=== PATIENT | male | born 1955 | race Caucasian/White ===

== ENCOUNTER → 2020-06-17 01:11 | Outpatient (CLI) | payer BC, SELFPAY ==
[2020-06-17 20:38] LABS: SARS-CoV-2 RNA PCR Negative
== END ==
PROVIDERS: Visit Provider Internal Medicine Gastroenterology
DX: Z01.812 Encounter for preprocedural laboratory examination (principal); Z20.822 Contact with and (suspected) exposure to COVID-19
CPT/HCPCS: C9803; U0003; U0005

== ENCOUNTER 2020-06-21 00:43 | Day surgery (SDC) | payer BC, SELFPAY ==
[2020-06-07 11:17] VITALS: BMI 32.0
[2020-06-21 09:52] VITALS: BP 139/91; PULSE 76; RESP 18; TEMP 36.1; O2SAT 97; BMI 32.1
[2020-06-21] MEDS: LACTATED RINGERS 1,000 ML 150 ML IV CONT (10:03)
--- NOTE | 2020-06-21 10:45 | P.PNAN_ITS ---
Anes - Initial Pre Proc Eval Procedure: Operation Date: 06/21/20 10:30 Proposed Procedures p Screening Colonoscopy - Bernardo Nava MD Date/Time: 06/21/20 10:45 Surgeon: Bernardo Nava MD Pre Op Diagnosis: Neoplasm Screening Patient Data Age: 65 Gender: M Height: 6 ft 1 in Weight: 110.6 kg Last Vital Signs Temp 36.1 C L 06/21/20 09:52 Pulse 76 06/21/20 09:52 Resp 18 06/21/20 09:52 BP 139/91 H 06/21/20 09:52 Pulse Ox 97 06/21/20 09:52 Allergies Allergy/AdvReac Type Severity Reaction Status Date / Time No Known Allergies Allergy Verified 06/21/20 09:50 Home Medications Medication Instructions Recorded Confirmed Type sodium,potassium,mag sulfates See Rx Instructions .ROUTE 06/05/20 Rx [Suprep Bowel Prep Kit] .COMPLEX #1 ml amlodipine 10 mg PO DAILY 06/07/20 06/07/20 History losartan 100 mg PO DAILY 06/07/20 06/21/20 History simvastatin 20 mg PO DAILY 06/07/20 06/07/20 History Patient hx anesthesia problems: none Family hx anesthesia problems: none [facility] Past Medical History Medical History (Updated 06/21/20 @ 10:48 by Raj Bhardwaj MD) HTN (hypertension) Hyperlipidemia Obesity Surgical History Surgical History (Updated 06/21/20 @ 10:48 by Raj Bhardwaj MD) H/O colonoscopy Social History Social History Smoking status: Never smoker Alcohol intake: never Substance use type: does not use Living arrangements: with family Spiritual care concerns: No Anes - Eval Final PreProcedure Day of Procedure 06/21/20 10:45 Patient weight: obese Heart: regular rate and rhythm Lungs: clear to auscultation Airway: Mallampati scale class II Neurological: alert and oriented Last oral intake: >/= 8 hours ASA classification: II Emergent: no Anesthetic plan: proceed Anesthesia type and monitoring: general GIVS and standard monitoring Informed Consent: The patient's anesthetic plan and its attendant risks and benefits were discussed with the patient/family/POA. Questions were solicited and answers provided to the satisfaction of the patient/family/POA.
--- NOTE | 2020-06-21 11:06 | PM.HPGS ---
History of Present Illness History of Present Illness Consent: Risks, benefits, and alternatives have been discussed and questions answered. Patient agrees to proceed with procedure. Chief complaint: Neoplasm Screening Narrative: Hima Bolden is a 65 year old male here for colon screening, last one 8 years ago. Review of Systems Constitutional: Constitutional: Denies headache(s) and Denies weakness Eyes: Eyes: Denies blurry vision ENT: Reports Normal hearing present, Denies headache(s) and Denies neck pain Cardiovascular: Cardiovascular: Denies chest pain and Denies dyspnea Respiratory: Respiratory: Denies dyspnea Gastrointestinal: Gastrointestinal: Reports no additional gastrointestinal complaints Genitourinary: Genitourinary: Denies dysuria Musculoskeletal: Musculoskeletal: Denies neck pain Integumentary/Breasts: Skin/Breast: Denies dry skin Neurologic: Reports Normal hearing present, Denies headache(s) and Denies weakness Psychiatric: Psychiatric: Denies anxiety Endocrine: Endocrine: Denies change in body appearance Hematologic/Lymphatic: Hematologic/Lymphatic: Denies easy bleeding Allergic/Immunologic: Allergic/Immunologic: Denies urticaria PMFSH Past Medical History Medical History (Updated 06/21/20 @ 11:06 by Bernardo Nava MD) Colon cancer screening HTN (hypertension) Hyperlipidemia Obesity Surgical History Surgical History (Updated 06/21/20 @ 10:48 by Raj Bhardwaj MD) H/O colonoscopy Social History Social History Smoking status: Never smoker Alcohol intake: never Substance use type: does not use Living arrangements: with family Spiritual care concerns: No Meds Home Medications and Allergies Home Medications Medication Instructions Recorded Confirmed Type sodium,potassium,mag sulfates See Rx Instructions .ROUTE 06/05/20 Rx [Suprep Bowel Prep Kit] .COMPLEX #1 ml amlodipine 10 mg PO DAILY 06/07/20 06/07/20 History losartan 100 mg PO DAILY 06/07/20 06/21/20 History simvastatin 20 mg PO DAILY 06/07/20 06/07/20 History Allergies Allergy/AdvReac Type Severity Reaction Status Date / Time No Known Allergies Allergy Verified 06/21/20 09:50 Vital Signs Vital Signs - 24 hr 06/21/20 09:52 Temperature 97 F L Pulse Rate 76 Respiratory Rate 18 Blood Pressure 139/91 H Pulse Oximetry 97 Exam Const: General: comfortable and no acute distress HENMT: General nose exam: Normal nares present Eyes: General: appearance normal, both eyes and all related structures Neck: Neck: no JVD Resp: Auscultation: clear to auscultation bilaterally Cardio: Rate: regular rate Rhythm: regular rhythm GI: Inspection: non-distended GI Palp: Yes Soft to palpation Skin: General skin exam: normal color Neuro: General: gait normal Speech: normal speech Extrem: General: normal to inspection Psych: Mental Status: mental status grossly normal Assessment and Plan Assessment and plan (1) Colon cancer screening: Code(s): Z12.11 - Encounter for screening for malignant neoplasm of colon Status: Acute Assessment and Plan: will proceed with colonoscopy
[2020-06-21 11:34] VITALS: BP 105/62; PULSE 83; RESP 20; O2SAT 97
[2020-06-21 11:44] VITALS: BP 108/71; PULSE 83; RESP 17; O2SAT 98
[2020-06-21 11:54] VITALS: BP 127/83; PULSE 75; RESP 18; O2SAT 97
== END 2020-06-21 12:07 | disposition home or self-care (01) ==
PROVIDERS: Visit Provider Internal Medicine Gastroenterology
PROC: 0DJD8ZZ Inspection of Lower Intestinal Tract, Via Natural or Artificial Opening Endoscopic (ICD-10-PCS; CPT 45378; principal; 2020-06-21 10:30)
DX: Z12.11 Encounter for screening for malignant neoplasm of colon (principal); K57.30 Diverticulosis of large intestine without perforation or abscess without bleeding; K63.5 Polyp of colon; K64.8 Other hemorrhoids; I10 Essential (primary) hypertension; E78.5 Hyperlipidemia, unspecified; E66.9 Obesity, unspecified; Z68.32 Body mass index [BMI] 32.0-32.9, adult
CPT/HCPCS: 45385; 88305; J2704; J7120

== ENCOUNTER 2020-09-01 18:36 | Emergency (ER) | payer BC, SELFPAY ==
[2020-09-01 19:50] VITALS: BP 149/87; PULSE 77; RESP 18; TEMP 36.2; O2SAT 97
--- NOTE | 2020-09-01 21:25 | ED.EXTPRO ---
HPI - Extremity Problem General Chief complaint: Extremity Problem,Nontraumatic Stated complaint: ingrown fingernail Time Seen by Provider: 09/01/20 21:16 Source: patient Mode of arrival: ambulatory Limitations: no limitations History of Present Illness HPI Narrative: This is a 65-year-old male that presents the emergency department for left third finger swelling and redness. Also reports pain to the area. No injuries or trauma. Denies fever or drainage. Related Data Home Medications Medication Instructions Recorded Confirmed amlodipine 10 mg PO DAILY 06/07/20 06/07/20 losartan 100 mg PO DAILY 06/07/20 06/21/20 simvastatin 20 mg PO DAILY 06/07/20 06/07/20 Allergies Allergy/AdvReac Type Severity Reaction Status Date / Time No Known Allergies Allergy Verified 09/01/20 21:33 Review of Systems Review of Systems: Narrative: CONSTITUTIONAL: Denies fever SKIN: Reports erythema and edema All systems reviewed & are unremarkable except as noted in HPI and below PMFSH Past Medical History Medical History (Updated 09/01/20 @ 22:31 by Minnie De La Paz PA-C) Colon cancer screening HTN (hypertension) Hyperlipidemia Obesity Surgical History Surgical History (Updated 06/21/20 @ 10:48 by Raj Bhardwaj MD) H/O colonoscopy Social History Social History Smoking status: Never smoker Alcohol intake: never Substance use type: does not use Spiritual care concerns: No Exam Narrative: Exam Narrative: GENERAL: Well-appearing, well-nourished, and in no acute distress. HEAD: Normocephalic, atraumatic. EYES: EOMI. EXTREMITIES: Normal range of motion. Moderate edema and erythema of the left third finger distal phalanx at the proximal nailfold consistent with paronychia SKIN: Warm, dry, no rash. NEURO: No focal deficits. Alert and oriented x3. PSYCH: Normal mood and affect Course Vital Signs Vital signs: Vital Signs Temperature 97.1 F L 09/01/20 19:50 Pulse Rate 77 09/01/20 19:50 Respiratory Rate 18 09/01/20 19:50 Blood Pressure 149/87 H 09/01/20 19:50 Pulse Oximetry 97 09/01/20 19:50 Temperature 97.1 F L 09/01/20 19:50 Pulse Rate 77 04/23/21 19:50 Respiratory Rate 18 09/01/20 19:50 Blood Pressure 149/87 H 09/01/20 19:50 Pulse Oximetry 97 09/01/20 19:50 Procedures Abscess I/D hand: Date of Incision: 09/01/20 Time of Incision: 22:26 Side (if applicable): left Local Anesthetic: lidocaine 1% Amount of anesthesia used (mL): 4 Technique: incised with #11 blade Packing used?: none I&D Results: Pus and Blood MDM - Extremity (Nontraumatic) MDM Narrative Medical decision making narrative: Patient presents to the emergency department for paronychia. This was drained. Patient will be started on oral antibiotics and was instructed on warm soapy soaks. He is to follow-up with his primary care doctor. Will be given hand surgeon for any worsening symptoms. Critical Care Time Critical Care Time Critical Care Time: No Discharge Plan Discharge Clinical Impression: Paronychia Patient Disposition: Home, Self-Care Condition: Stable Instructions: Antibiotic Form, Paronychia (ED) Additional Instructions: Return if symptoms worsen or concerns: any increase in redness, swelling, pain, or fever over 101 Take antibiotics as directed. Soak wound in warm soapy water for 15 minutes 3 times daily. Apply antibiotic ointment. Follow up with primary care in the next 2-3 days for re-evaluation Dr. Joseph is hand surgery if needed for any worsening symptoms Prescriptions: New sulfamethoxazole-trimethoprim [Bactrim DS] 800-160 mg tablet 1 tablet PO Q12H 7 Days Qty: 14 RF: 0 No Action Suprep Bowel Prep Kit 17.5-3.13-1.6 gram Recon Soln See Rx Instructions .ROUTE .COMPLEX Qty: 1 RF: 0 amlodipine 10 mg tablet 10 mg PO DAILY RF: 0 simvastatin 20 m
[2020-09-01 22:48] VITALS: BP 147/83; PULSE 78; RESP 18; O2SAT 98
== END 2020-09-01 22:49 | disposition home or self-care (01) ==
PROVIDERS: Emergency Provider Emergency Medicine; PCP Family Medicine
DX: L03.012 Cellulitis of left finger (principal); I10 Essential (primary) hypertension; E78.5 Hyperlipidemia, unspecified; E66.9 Obesity, unspecified; Z68.30 Body mass index [BMI] 30.0-30.9, adult
CPT/HCPCS: 26010; 99283; A9270

== ENCOUNTER 2020-11-01 15:04 | Outpatient (CLI) | payer BC, SELFPAY ==
--- NOTE | ~2020-11-01 | XR_ITS ---
EXAMINATION: XR abdomen/kub 1V DATE: 11/01/2020 15:21 INDICATION: Left pelvic pain. TECHNIQUE: A supine view of the abdomen on 2 radiographs was obtained. COMPARISON: None. FINDINGS: There are no dilated loops of bowel. A 3 mm calcification overlies right kidney. A 4 mm reji cification overlies left pelvis. IMPRESSION: 1. 4 mm calcification in left pelvis, which may be a phlebolith or distal ureteral stone. 2. 3 mm right kidney stone. Reviewed, dictated and finalized at location A. IMPRESSION: 1. 4 mm calcification in left pelvis, which may be a phlebolith or distal urete ral stone. 2. 3 mm right kidney stone.
== END 2020-11-01 15:05 | disposition home or self-care (01) ==
LOC: ANHIMG 15:09
PROVIDERS: PCP Family Medicine
DX: R10.2 Pelvic and perineal pain (principal); N20.0 Calculus of kidney
CPT/HCPCS: 74018

== ENCOUNTER → 2021-02-13 10:57 | Outpatient (CLI) | payer BC, SELFPAY ==
--- NOTE | ~2021-02-13 | US_ITS ---
EXAMINATION: US carotid duplex BI DATE: 02/13/2021 11:43 INDICATION: Familial history of strokes. TECHNIQUE: Grayscale, color Doppler, and pulsed Doppler images of the cervical carotid arteries were obtained. The degree of vessel stenosis is placed in one of the following categories: normal, <50%, 5 0-69%, >=70% but less than near-occlusion, near-occlusion, or total occlusion. Note that percent sten osis relative to normal distal artery lumen diameter is indirectly measured from velocity measurement s as described by Omari, et al. Radiology 2003; 229:340-346. COMPARISON: None. FINDINGS: RIGHT: The right common carotid artery (CCA) peak systolic velocity (PSV) is 82 cm/s. The right internal car otid artery (ICA) PSV is 54 cm/s. The right ICA end-diastolic velocity (EDV) is 16 cm/s. The right IC A/CCA PSV ratio is 0.7. Grayscale and color Doppler images yield an estimate of <50% diameter reducti on from small amount of plaque in the ICA. The external carotid artery (ECA) PSV is 81 cm/s. There is antegrade flow in the right vertebral artery. LEFT: The left CCA PSV is 83 cm/s. The left ICA PSV is 63 cm/s. The left ICA EDV is 22 cm/s. The left ICA/C CA PSV ratio is 0.8. Grayscale and color Doppler images yield an estimate of <50% diameter reduction from minimal plaque in the ICA. The ECA PSV is 96 cm/s. There is antegrade flow in the left vertebral artery. IMPRESSION: 1. <50% stenosis in the right internal carotid artery. 2. <50% stenosis in the left internal carotid artery. Reviewed, dictated and finalized at location B.
== END ==
DX: I65.23 Occlusion and stenosis of bilateral carotid arteries (principal); Z82.3 Family history of stroke
CPT/HCPCS: 93880

== ENCOUNTER 2021-07-25 16:51 | Emergency (ER) | payer BC, SELFPAY ==
[2021-07-25] VITALS (13 sets, daily range): BP systolic 139–161; BP diastolic 86–102; PULSE 66–96; RESP 15–19; TEMP 36.9; O2SAT 92–95
--- NOTE | ~2021-07-25 | CT_ITS ---
EXAMINATION: CT brain wo con DATE: 07/25/2021 18:29 INDICATION: Speech difficulty, unsteady gait, drooling TECHNIQUE: Computed tomography (CT) of the head was performed without intravenous contrast. The mA wa s adjusted according to patient size. Iterative reconstruction technique was employed. Exam dose: 68 1.00 mGy-cm total exam DLP. COMPARISON: None FINDINGS: There is a 4.3 cm wide, 4.9 cm anteroposterior and approximately 4.6 cm vertical dimension left temporoparietal irregular mass lesion with peripheral edema. There is central hypoattenuation of the mass suggesting central necrosis. There is mass effect/effacement of the body and frontal horn o f the left lateral ventricle and approximately 5 mm rightward midline shift. The findings are consist ent with malignant lesion, most likely related primary brain malignancy. Differential diagnosis inclu juventino less likely metastasis. No intracranial hemorrhage or cerebrovascular accident is evident. No subdural or epidural hematoma. No other intracranial mass lesion is evident. Mastoid air cells and included paranasal sinuses are normally developed and aerated. No fracture or bone destruction of the cranial vault. 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 Metastasis is less li efrain. Reviewed, dictated and finalized at Location [facility]. Reviewed, dictated and finalized at location A. 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 Primary brain case gnancy is most likely. Metastasis is less likely.
--- NOTE | ~2021-07-25 | XR_ITS ---
XR chest 1V DATE: 07/25/2021 18:31 INDICATION: Stroke symptoms TECHNIQUE: PA chest COMPARISON: None FINDINGS: Normal heart size. There is mild aortic unfolding. No hilar or mediastinal enlargement is n oted. There is a large hiatal hernia. Mild atelectasis is suggested at the lung bases. The lungs otherwise appear clear. No pleural effusio n or pulmonary vascular congestion or pneumothorax. IMPRESSION: Large hiatal hernia Mild basilar atelectasis is suggested bilaterally Reviewed, dictated and finalized at location A.
--- NOTE | 2021-07-25 18:16 | ECG_ITS ---
Measurements Intervals [place] Rate: 78 P: 14 NC: 136 QRS: 13 QRSD: 92 T: 50 QT: 359 QTc: 410 Interpretive Statements SINUS RHYTHM NONSPECIFIC T-WAVE ABNORMALITY NO PREVIOUS ECG AVAILABLE FOR COMPARISON Electronically Signed On 07-25-2021 20:30:39 CDT by Camila Krishnan M.D.
[2021-07-25 19:15] LABS: Basophils Absolute Auto 0.1 K/mm3 (0.0-0.1); Eosinophils Absolute Auto 0.1 K/mm3 (0-0.3); Eosinophils Percent Auto 1.2 % (0-4.4); Hematocrit 47.9 % (42.0-52.0); Hemoglobin 15.9 g/dL (14.0-18.0); Immature Granulocyte Absolute 0.03 K/mm3 (0.00-0.031); Immature Granulocyte Percent A 0.3 % (0-0.5); Lymphocytes Absolute Auto 3.12 K/mm3 (0.9-3.2); Lymphocytes Percent Auto 29.6 % (18.3-44.2); Mean Corpuscular HGB Conc 33.2 g/dl (32-36); Mean Corpuscular Hemoglobin 31.3 pg (26-34); Mean Corpuscular Volume 94.3 fl (80-100); Mean Platelet Volume 8.8 fl (7.4-10.4); Monocytes Absolute Auto 1.1 K/mm3 (0.1-0.6); Monocytes Percent Auto 10.7 % (2.6-8.5); Neutrophils Percent Auto 57.2 % (45.5-73.1); Platelet Count Result 372 k/mm3 (150-375); Red Blood Count 5.08 M/mm3 (4.6-6.20); Red Cell Distribution Width 13.6 % (11.5-14.5); White Blood Count 10.6 K/mm3 (4.5-10.0)
[2021-07-25 19:26] LABS: INR 1.1; Partial Thromboplastin Time 28.1 SECONDS (22.3-36.8); Prothrombin Time 13.3 Seconds (11.1-14.7)
[2021-07-25 19:28] LABS: Alanine Aminotransferase 27 U/L (4-50); Albumin Level 4.7 g/dL (3.5-5.1); Alkaline Phosphatase 97 U/L (38-126); Anion Gap 11 mmol/L (8-16); Aspartate Amino Transferase 29 U/L (17-59); Bilirubin,Total 0.9 mg/dL (0.2-1.3); Blood Urea Nitrogen 14 mg/dL (9-20); Carbon Dioxide 25 mmol/L (22-30); Chloride 102 mmol/L (98-107); Estimated CRCL calculation 92 ml/min; Estimated Glomerular Filt Rate > 60; Glucose 114 mg/dL (65-110); Potassium 3.9 mmol/L (3.4-5.0); Sodium 138 mmol/L (137-145)
--- NOTE | 2021-07-25 19:34 | ED.NEUROSD ---
HPI - Neuro Symptoms/Deficit General Chief Complaint: Neuro Symptoms/Deficit Stated Complaint: problem speaking x2 wks, unsteady gait Time Seen by Provider: 07/25/21 19:18 Source: patient History of Present Illness HPI Narrative: Patient brought in by family concern for difficulty speaking. In approximately 2 weeks ago he is having a hard time finding the words the past few days his gait has seemed unsteady and he seems to have a shuffling walk there was concerned so he came to the ER for evaluation. Patient reports he feels fine and has no complaints he is unsure as to why he is here. Denies any headache, nausea, vomiting denies any focal numbness or weakness denies any changes in vision. He also reports he appears more confused Related Data Home Medications Medication Instructions Recorded Confirmed amlodipine 10 mg PO DAILY 06/07/20 06/07/20 losartan 100 mg PO DAILY 06/07/20 06/21/20 sildenafil (pulm.hypertension) 07/25/21 Allergies Allergy/AdvReac Type Severity Reaction Status Date / Time No Known Allergies Allergy Verified 09/01/20 21:33 Review of Systems Review of Systems: CONSTITUTIONAL: Denies fever, chills, or sweats. EYES: Denies visual changes, redness, or discharge. ENT: Denies rhinorrhea, congestion, sore throat, or otalgia. CARDIOVASCULAR: Denies chest pain, palpitations, or edema. RESPIRATORY: Denies cough or dyspnea. GASTROINTESTINAL: Denies abdominal pain, nausea, vomiting, or diarrhea. GENITOURINARY: Denies dysuria or hematuria. SKIN: Denies rash or itching. MUSCULOSKELETAL: Denies back pain, joint pain, or myalgia. NEUROLOGIC: Denies headache, numbness, dizziness, or weakness. PSYCHIATRIC: Denies anxiety or depression. All systems reviewed & are unremarkable except as noted in HPI and below PMFSH Past Medical History Medical History Colon cancer screening HTN (hypertension) Hyperlipidemia Obesity Surgical History Surgical History H/O colonoscopy Social History Social History Smoking status: Never smoker Alcohol intake: never Substance use type: does not use Spiritual care concerns: No Exam Narrative: GENERAL: Well-appearing, well-nourished, and in no acute distress. HEAD: Normocephalic, atraumatic. EYES: PERRLA and EOMI. ENT: Nares clear, no rhinorrhea or epistaxis. Mucous membranes moist. NECK: Supple. No masses. No JVD CHEST: Clear to auscultation. No respiratory distress. No wheezes rales or rhonchi HEART: Regular rate and rhythm. No murmur heard. Normal peripheral pulses. ABDOMEN: Soft, nontender, nondistended, normal active bowel sounds. EXTREMITIES: Normal range of motion. No edema. SKIN: Warm, dry, no rash. NEURO: Cranial nerves II through XII are intact patient has 5 out of 5 strength in all extremities sensation intact to light touch in all extremities alert and oriented to self time and location but not situation. PSYCH: Normal mood and affect. Course Reevaluation(s) Reevaluation #1: Patient signed out to Dr. Ghosh pending bed assignment Date: 07/26/21 Time: 07:22 Consultations Consultation #1: Call placed to [facility] transfer center requesting transfer for neurosurgical evaluation Date: 07/25/21 Time: 19:36 Consultation #2: Patient was accepted by Dr. Kyle at [place] Date: 07/25/21 Time: 20:24 Vital Signs Vital signs: Vital Signs Temperature 36.9 C 07/25/21 17:04 Pulse Rate 96 07/25/21 17:04 Respiratory Rate 16 07/25/21 17:04 Blood Pressure 150/87 H 07/25/21 17:04 Pulse Oximetry 95 07/25/21 17:04 Temperature 36.9 C 07/25/21 17:04 Pulse Rate 64 07/26/21 02:24 Respiratory Rate 16 07/26/21 02:24 Blood Pressure 151/111 H 07/26/21 06:01 Pulse Oximetry 96 07/26/21 06:01 MDM - Neuro Symptoms/Deficit MDM Narrative Medical decision making narrative: [place]
[2021-07-25 19:38] LABS: Troponin I < 0.012 ng/mL (0.000-0.034)
[2021-07-25 21:15] LABS: SARS-CoV-2 RNA PCR Negative
--- NOTE | 2021-07-25 21:41 | PC.NURSE ---
Notified [facility] transfer center of negative covid results.
--- NOTE | 2021-07-25 23:19 | PC.NURSE ---
Patient's has asked how much longer it will be to transfer him to [facility]. Advised her that we are still awaiting a room assignment. She asked if she could take him home and then take him to another hospital tomorrow. Seriousness of diagnosis and need for evaluation by neuro reiterated to the . Dr. Yanez also speaking to the patient and his at this time.
--- NOTE | 2021-07-25 23:47 | PC.NURSE ---
Patient given sandwich tray and drink.
[2021-07-26] VITALS (25 sets, daily range): BP systolic 116–151; BP diastolic 71–111; PULSE 62–82; RESP 12–18; O2SAT 93–97
--- NOTE | 2021-07-26 01:25 | PC.NURSE ---
Patient and walked up to the nurses station, asking about status of transfer. Explained that a bed has not yet been assigned. Both were very frustrated at the long wait time. Patient settled back in bed with blankets and a pillow, lights dimmed so he can sleep. Patient removed potline monitor. Will monitor vitals. to go home for a while, asked to be called if a room is assigned before she returns. [phone]
--- NOTE | 2021-07-26 09:42 | PC.NURSE ---
Bed Status - No Neuro beds on waiting liest
--- NOTE | 2021-07-26 10:31 | PC.NURSE ---
updated miguel with current vital signs. still waiting for room. pt moving to hospital bed in room for comfort
[2021-07-26 18:41] LABS: Glucose Point of Care 214 mg/dl (65-105)
--- NOTE | 2021-07-26 19:21 | PC.NURSE ---
Assuming care of pt.
--- NOTE | 2021-07-26 19:53 | PC.NURSE ---
Pt aox3 at this time knows he is waiting for transfer denies dizziness, blurred vision, headache, or pain anywhere at this time.
--- NOTE | 2021-07-26 21:31 | PC.NURSE ---
made contact with [facility] to transfer pt to [place] [id number] Bed B, Eta for [facility] is [phone] (trip # [phone])
--- NOTE | 2021-07-26 23:31 | PC.NURSE ---
escrow secretary made contact with [employer] to get a new eta for pt to go to [facility] (#[id number]) new eta for company is [phone]
[2021-07-27 01:00] VITALS: BP 138/90; PULSE 68; RESP 18; O2SAT 95
--- NOTE | 2021-07-27 01:04 | PC.NURSE ---
made contact with [employer] for an updated eta with [phone]
[2021-07-27 02:26] VITALS: BP 122/89; PULSE 65; RESP 16; O2SAT 94
== END 2021-07-27 02:30 | disposition short-term general hospital (02) ==
LOC: ANHED 19:52
PROVIDERS: Family Medicine; Emergency Provider Emergency Medicine
DX: R41.0 Disorientation, unspecified (principal); D43.2 Neoplasm of uncertain behavior of brain, unspecified; G93.6 Cerebral edema; I10 Essential (primary) hypertension; E78.5 Hyperlipidemia, unspecified; Z20.822 Contact with and (suspected) exposure to COVID-19
CPT/HCPCS: 36415; 70450; 71045; 80053; 82948; 84484; 85025; 85610; 85730; 93005; 96365; 99285; C9803; U0003; U0005

== ENCOUNTER 2021-08-28 14:00 | Outpatient (RCR) | payer BC, SELFPAY ==
--- NOTE | 2021-08-22 15:04 | OTOPEVAL ---
OCCUPATIONAL THERAPY EVALUATION REPORT AND DISCHARGE SUMMARY 08/22/21 Patient referred to outpatient OT s/p brain tumor resection 3 weeks ago. At this time the patient is functioning at his baseline - independently. He has intact and symmetrical strength. Functional coordination is WNL. No further skilled OT indicated at this time. Thank you for referring Hima Bolden to [facility]. Please review, sign, date and return this D/C Note DANIELLE. I agree with and certify that the following plan of care is medically necessary. Referring Physician Date Referring Provider: James Reeves MD *OT Outpatient Evaluation Start: 08/22/21 14:37 Outpatient Past Medical History Past Medical History Source of Past Medical History Patient Neurological History Hx Other Neurological Disorders Yes: malignant brain mass s/p resection 08/01/21 Cardiovascular History Hx Hypercholesterolemia Yes Hx Hypertension Yes Respiratory History Hx Respiratory Disorders No Significant History Gastrointestinal History Hx Polyps Yes Genitourinary History Hx Kidney Stones Yes Musculoskeletal History Hx Musculoskeletal Disorders No Significant History Hematological History Hx Hematological Disorders No Significant History Endocrine History Hx Endocrine Disorders No Significant History HEENT History Hx HEENT Disorders No Significant History Integumentary History Hx Skin Disorders No Significant History Reproductive History Hx Reproductive Disorders No Significant History Psychosocial History Hx Psychiatric Disorders No Significant History Pain History History of Any Previous or Ongoing No Significant History Instance of Pain Anesthesia History Hx Anesthesia Reactions No Significant History Evaluation Information Problem Diagnosis Brain Mass Onset s/p surgery 08/01/21 Subjective Information Patient reports he had a Query Text:As Reported By Patient/ malignant brain tumor removed Family 08/01/21 and discharged home 2 days later. He states that at home he is functioning at his baseline (independently) with ADLs. Prior Level of Function Activity Level (Last 3 Months) Hand Dominance Right Activity of Daily Living Ability Independent Indoor/Home Mobility Independent Community Mobility Independent Stairs Ability Independent Functional Cognition (Planning, Shopping Independent , Taking Medications) Cooking Yes Cleaning Yes Laundry Yes Shopping Yes Driving Yes Home Setting Home Type
--- NOTE | 2021-08-23 17:07 | STOPEVAL ---
Addendum entered by MELBA [place] 08/23/21 17:10: Disregard--refer to report by Stefania Tan Original Note: SPEECH THERAPY EVALUATION INITIAL EVALUATION: Thank you for referring Hima Bolden to [facility].? The patient is scheduled to be seen for therapy?1-2x/week (related to pt availability) for 4 weeks. Please review, sign, date and return this plan of care DANIELLE. I agree with and certify that the following plan of care is medically necessary. Referring Physician Date Attending Provider: PHYSICIAN NOT ON STAFF Evaluation Information Problem Diagnosis s/p Brain Mass Onset s/p surgery 08/01/21 Subjective Information Patient reports that he had a Query Text:As Reported By Patient/ cancerous debut, or of July, surgery based on that. Patient reports that he has had difficulty thinking of words. He stated that his difficulty would not be substituting words for forgotten words, but he would stop and have to think of the right word. Patient reports he works for the [employer] and plans to retire. He stated that part of his responsibilities include public and private speaking. When asked if he felt he could present a topic to another person, he stated that he felt that he would be able to complete that task. At the same time, he feels that he may have random difficulty with word-finding. Language Evaluation Auditory Comprehension Body Part Identification (% Accuracy (0- 100 100)) Object Identification (% Accuracy (0-100 100 )) Picture Identification (% Accuracy (0- 100 100)) Object/Picture Identification Comments 100 Simple Yes/No Questions (% Accuracy (0- 100 100)) Moderate Yes/No Questions (% Accuracy (0 100 -100)) Complex Yes/No Questions (% Accuracy (0- 100 100)) Auditory Comprehension One-Step 100 Directives (% Accuracy (0-100)) Auditory Comprehension of Two-Step 100 Directives (% Accuracy (0-100)) Auditory Comprehension of Three-Step 100 Directives (% Accuracy (0-100)) Auditory Comprehension of Complex 100 Directives (% Accuracy (0-100)) Response Latency
--- NOTE | 2021-08-23 17:12 | STOPEVAL ---
SPEECH THERAPY INITIAL EVALUATION Thank you for referring Hima Bolden to [facility].? The patient is scheduled to be seen for therapy? 1-2x/week for 4 weeks, flexible due to patient's schedule. Please review, sign, date and return this plan of care DANIELLE. I agree with and certify that the following plan of care is medically necessary. Referring Physician Date Attending Provider: PHYSICIAN NOT ON STAFF Therapy Assessment Status Assessment Status Assessment Status Evaluation Evaluation Information Problem Diagnosis s/p Brain Mass Onset s/p surgery 08/01/21 Subjective Information Patient reports that he had a Query Text:As Reported By Patient/ cancerous debut, or of July, surgery based on that. Patient reports that he has had difficulty thinking of words. He stated that his difficulty would not be substituting words for forgotten words, but he would stop and have to think of the right word. Patient reports he works for the [employer] ([employer] and plans to retire. He stated that part of his responsibilities include public and private speaking. When asked if he felt he could present a topic to another person, he stated that he felt that he would be able to complete that task. At the same time, he feels that he may have random difficulty with word-finding. Pain Assessment Timing of Pain Assessment Timing of Pain Assessment Assessment Self Report Self Report Pain Level 0 Pain Score Pain Score 0: Self Report Language Evaluation Auditory Comprehension Body Part Identification (% Accuracy (0- 100 100)) Object Identification (% Accuracy (0-100 100 )) Picture Identification (% Accuracy (0- 100 100)) Object/Picture Identification Comments 100 Simple Yes/No Questions (% Accuracy (0- 100 100)) Moderate Yes/No Questions (% Accuracy (0 100 -100)) Complex Yes/No Questions (% Accuracy (0- 100 100)) Auditory Comprehension One-Step 100 Directives (% Accuracy (0-100)) Auditory Comprehension of Two-Step 100 Directives (% Accuracy (0-100))
--- NOTE | 2021-09-04 09:23 | PCSTNOTE ---
Patient cancelled the next several weeks of visits due to beginning chemotherapy and wanting to wait to see how he reacts to chemo; will contact us when able to return/resume.
--- NOTE | 2021-10-09 13:36 | PCSTNOTE ---
Admitting Provider: Attending Provider: PHYSICIAN NOT ON STAFF Patient:Hima oBlden Date of :1955 Patient has not returned for any further Speech Therapy treatments since the date of his evaluation on 08/28/2021, therefore (he/she) will be discharged at this time. The goals have not been met. He expressed other concerns at the time of his evaluation. Patient may return for re-evaluation and begin Speech Therapy whenever it is convenient for him. Thank you for referring this patient to [facility]. Please review, sign, date and return this discharge summary DANIELLE. I have been updated about the patient's current status and I agree with discharge from the above service at this time. Referring Physician Date
== END 2021-10-31 13:56 | disposition home or self-care (01) ==
LOC: ANHST 14:00
DX: G93.89 Other specified disorders of brain (principal)
CPT/HCPCS: 92507; 92523; 97165

== ENCOUNTER 2021-11-11 09:04 | Emergency (ER) | payer BC, SELFPAY ==
--- NOTE | ~2021-11-11 | US_ITS ---
US venous doppler UE LT DATE: 11/11/2021 10:14 INDICATION: Left arm swelling, redness TECHNIQUE: Real-time and color flow imaging and Doppler analysis of the veins of the left upper extre mity COMPARISON: None FINDINGS: The left internal jugular, subclavian, axillary, brachial, basilic, cephalic and radial and ulnar veins are patent without evidence of intraluminal thrombus. There is mild subcutaneous and edema of the left forearm in the area of erythema. IMPRESSION: No evidence of deep venous thrombosis of left upper extremity Nonspecific subcutaneous edema in the area of left forearm erythema Reviewed, dictated and finalized at [facility]. Reviewed, dictated and finalized at [facility].
[2021-11-11 09:05] VITALS: BP 148/81; PULSE 87; RESP 16; TEMP 36.5; O2SAT 100
--- NOTE | 2021-11-11 09:39 | ED.EXTPRO ---
HPI - Extremity Problem General Chief complaint: Extremity Problem,Nontraumatic Stated complaint: L ARM PAIN Time Seen by Provider: 11/11/21 09:15 History of Present Illness HPI Narrative: Patient is a 66-year-old male here for evaluation of left upper extremity swelling and bruising today. Patient states that he had numerous blood draws 3 days ago and since then he has had pain in numerous bruises. States that the left arm does look more swollen than usual. He has a history of malignancy but has not had a blood clot in the past. He denies numbness, tingling, fevers, chills, paresthesias. Has iced the area with mild relief. Related Data Home Medications Medication Instructions Recorded Confirmed amlodipine 10 mg tablet 10 mg PO DAILY 06/07/20 07/26/21 losartan 100 mg tablet 100 mg PO DAILY 06/07/20 07/26/21 sildenafil (pulm.hypertension) 20 20 mg PO DAILY PRN Hypertension 07/25/21 07/26/21 mg tablet simvastatin 20 mg tablet 20 mg PO HS 07/26/21 07/26/21 valsartan 160 mg tablet 160 mg PO DAILY 07/26/21 07/26/21 Allergies Allergy/AdvReac Type Severity Reaction Status Date / Time Penicillins Allergy Rash Verified 11/11/21 09:22 Review of Systems Review of Systems: Gen: Denies fevers or chills Eyes: Denies eye pain or visual change ENT: Denies congestion Respiratory: Denies shortness of breath or cough CV: Denies chest pain or palpitations GI: Denies abdominal pain nausea, emesis or diarrhea denies burning, urgency, frequency or hematuria Musculoskeletal: Reports left arm swelling. Neuro: Denies numbness, tingling, weakness or focal weakness Skin: Denies rash Except as documented, all other systems reviewed and negative PMF Past Medical History Medical History Colon cancer screening HTN (hypertension) Hyperlipidemia Obesity Surgical History Surgical History H/O colonoscopy Social History Social History Smoking status: Never smoker Alcohol intake: never Substance use type: does not use Spiritual care concerns: No Exam Narrative: APPEARANCE: Well appearing, no pain in distress, well-nourished. Head: Normocephalic and atraumatic. EYES: PERRLA/EOMI, conjunctivae clear NOSE: No nasal drainage EARS: External ear normal in appearance THROAT: Oropharynx is clear. Mucous membranes are moist. NECK: Supple. No adenopathy, no masses. RESPIRATORY: Airway patent, respirations nonlabored. Clear to auscultation bilaterally, no rales, rhonchi, wheezing. CARDIOVASCULAR: 2+ radial pulses bilaterally. Regular rate and rhythm without murmurs, rubs, or gallops. ABDOMINAL: Normoactive bowel sounds. Soft, nontender, nondistended. No rebound tenderness or guarding. MUSCULOSKELETAL: Extremities are warm and well-perfused. Moves all extremities well. No edema. NEURO: Normal speech. No focal neurologic deficits. SKIN: 2 contusions to left upper extremity, one over the AC fossa and one over the proximal wrist. 3 cm area of mild erythema over the medial aspect of the left forearm. Very mild swelling appreciated. PSYCHIATRIC: Normal affect/mood. Course Vital Signs Vital signs: Vital Signs Temperature 97.7 F 11/11/21 09:05 Pulse Rate 87 11/11/21 09:05 Respiratory Rate 16 11/11/21 09:05 Blood Pressure 148/81 H 11/11/21 09:05 Pulse Oximetry 100 11/11/21 09:05 Oxygen Delivery Room Air 11/11/21 09:05 Temperature 97.7 F 11/11/21 09:05 Pulse Rate 87 11/11/21 09:05 Respiratory Rate 16 11/11/21 09:05 Blood Pressure 148/81 H 11/11/21 09:05 Pulse Oximetry 100 11/11/21 09:05 Oxygen Delivery Room Air 11/11/21 09:05 MDM - Extremity (Nontraumatic) MDM Narrative Medical decision making narrative: 66-year-old male here for evaluation of a localized area of mild left upper extremity swelling, erythema and bruising si
== END 2021-11-11 10:51 | disposition home or self-care (01) ==
PROVIDERS: Emergency Provider Emergency Medicine
DX: T80.29XA Infection following other infusion, transfusion and therapeutic injection, initial encounter (principal); L03.114 Cellulitis of left upper limb; I10 Essential (primary) hypertension; E78.5 Hyperlipidemia, unspecified; E66.9 Obesity, unspecified; Z68.29 Body mass index [BMI] 29.0-29.9, adult
CPT/HCPCS: 93971; 99284

== ENCOUNTER 2022-05-21 21:44 | Emergency (ER) | payer BC, SELFPAY ==
[2022-05-21] VITALS (8 sets, daily range): BP systolic 133–147; BP diastolic 80–90; PULSE 72–83; RESP 9–18; O2SAT 96
--- NOTE | ~2022-05-21 | CT_ITS ---
EXAMINATION: CT brain wo con DATE: 05/21/2022 21:51 INDICATION: code stroke . TECHNIQUE: Computed tomography (CT) of the head was performed without intravenous contrast. The mA wa s adjusted according to patient size. Iterative reconstruction technique was employed. The dose-lengt h product was 681.00 mGy-cm. COMPARISON: Patient's name became available during interpretation: Hima Bolden, date of [birth year], comparison made to preoperative scan on 07/25/2021. FINDINGS: No acute intracranial hemorrhage or extra-axial fluid collection. No hydrocephalus, mass, or herniation. No acute ischemic infarct. Unremarkable dural venous sinus attenuation. No acute osseous abnormality. Left frontotemporal craniotomy. Subscapular fluid collection overlying the craniotomy defect. The aerated spaces are clear. Mild atrophy and chronic white matter change. Left temporal, parietal, and posterior frontal encephal omalacia and postsurgical change. IMPRESSION: 1. Post surgical change and encephalomalacia in the left hemisphere. Subtle or early infarct extensio n in these areas cannot be excluded without postoperative comparison studies. 2. Subscapular fluid collection overlying the craniotomy defect, presumably secondary to resolving po stoperative change, however CSF leak or infection could appear similarly. 3. Residual or recurrent tumor cannot be evaluated without contrast administration and postoperative comparison studies. Results reported telephonically to Minnie De La Paz PA-C by Dr. Chisholm at 10:00 PM on 05/21/2022. Reviewed, dictated and finalized at [facility]. IFIED SURGICAL FIRST ASSISTANT IMPRESSION: 1. Post surgical change and encephalomalacia in the left hemisphere. Subtle or early infarct extension in these areas cannot be excluded without postoperative comparison studies. 2. Subscapular fluid collection overlying the craniotomy defect, presumably sec ondary to resolving postoperative change, however CSF leak or infection could a ppear similarly. 3. Residual or recurrent tumor cannot be evaluated without contrast administrat ion and postoperative comparison studies. Results reported telephonically to Minnie De La Paz PA-C by Dr. Chisholm at 10:00 PM on 05/21/2022.
--- NOTE | ~2022-05-21 | XR_ITS ---
EXAMINATION: XR chest 1V portable Exam Date/Time: 05/21/2022 21:55 MUSHROOM FARMER HISTORY: code stroke, CONFUSION Comparison: 07/25/2021. RESULT: Lines, tubes, and devices: None. Lungs and pleura: Low lung volumes with crowding. Subsegmental bibasilar opacities likely representi ng scar/atelectasis. Cardiomediastinal silhouette: Stable. Other: No acute osseous or upper abdominal finding. IMPRESSION: No acute cardiopulmonary process. Reviewed, dictated and finalized at location [facility]. ROOM FARMER
--- NOTE | 2022-05-21 21:43 | ECG_ITS ---
Measurements Intervals [place] Rate: 76 P: 21 W[place]: 133 QRS: 19 QRSD: 96 T: 20 QT: 368 QTc: 414 Interpretive Statements SINUS RHYTHM BASELINE ARTIFACT- I, II, III, AVR, AVL, AVF, V1 NORMAL ECG COMPARISON TO PRIOR ECG 07-25-21 19:12 NO SIGNIFICANT CHANGES Electronically Signed On 05-22-2022 7:54:55 HAND SURGEON by Francis Rojas D.O.
[2022-05-21 21:57] LABS: Hematocrit 46.8 % (42.0-52.0); Hemoglobin 15.2 g/dL (14.0-18.0); Mean Corpuscular HGB Conc 32.5 g/dl (32-36); Mean Corpuscular Hemoglobin 30.3 pg (26-34); Mean Corpuscular Volume 93.4 fl (80-100); Mean Platelet Volume 8.5 fl (7.4-10.4); Platelet Count Result 361 k/mm3 (150-375); Red Blood Count 5.01 M/mm3 (4.6-6.20); Red Cell Distribution Width 16.4 % (11.5-14.5); White Blood Count 12.8 K/mm3 (4.5-10.0)
[2022-05-21 22:08] LABS: INR 0.9; Partial Thromboplastin Time 24.1 SECONDS (22.3-36.8); Prothrombin Time 12.2 Seconds (11.1-14.7)
[2022-05-21 22:21] LABS: Alanine Aminotransferase 47 U/L (6-50); Albumin Level 4.2 g/dL (3.5-5.1); Alkaline Phosphatase 77 U/L (38-126); Anion Gap 5 mmol/L (8-16); Aspartate Amino Transferase 28 U/L (17-59); Bilirubin,Total 0.5 mg/dL (0.2-1.3); Blood Urea Nitrogen 26 mg/dL (9-20); Calcium 8.8 mg/dL (8.4-10.2); Carbon Dioxide 31 mmol/L (22-30); Chloride 99 mmol/L (98-107); Estimated Glomerular Filt Rate > 60; Glucose 135 mg/dL (65-110); Potassium 4.2 mmol/L (3.4-5.0); Sodium 135 mmol/L (137-145)
[2022-05-21 22:23] LABS: Troponin I < 0.012 ng/mL (0.000-0.034)
--- NOTE | 2022-05-21 22:23 | PC.NURSE ---
per . pt's has right sided weakness from tumor sx but since 1529 pt weakness has increased and pt wasn't able to hold plate. states pt also has expressive aphasia with slurred speech.
[2022-05-21 22:33] LABS: Band Neutrophils Percent 1 % (0-6); Eosinophils Absolute Manual 0.12 K/mm3 (0.02-0.5); Eosinophils Percent Manual 1 % (0-4); Lymphocytes Absolute Manual 4.35 K/mm3 (1.1-4.5); Macrocytosis 1+ (NORMAL); Metamyelocytes Percent 2 %; Monocytes Absolute Manual 1.15 K/mm3 (0.1-0.90); Monocytes Percent Manual 9 % (3-9); Myelocytes Percent 2 %; Neutrophils Absolute Manual 6.65 K/mm3 (1.3-6.7); Neutrophils Percent Manual 51 % (46-73); Platelet Estimate Adequate (Adequate); Total Cells Counted 100
[2022-05-21 22:34] LABS: Atypical Lymphocytes Present; Hypersegmented Neutrophils Present; Rouleaux 1+ (NORMAL); Schistocytes None Seen (NORMAL)
--- NOTE | 2022-05-21 23:16 | PC.NURSE ---
info given to miguel triage. states that pt is on waitlist and will not get bed tonight. maybe next shift or the shift after. family aware.
--- NOTE | 2022-05-21 23:30 | PC.NURSE ---
pt more alert. pt able to ambulate to hospital bed with assistance. pt still has expressive aphasia but can answer questions by nodding or saying yes or no. pt obeys most commands.
--- NOTE | 2022-05-21 23:34 | ED.NEUROSD ---
HPI - Neuro Symptoms/Deficit General Chief Complaint: Suspected CVA <Rob Ortega MD - Last Filed: 05/22/22 06:51> Stated Complaint: suspected CVA <Rob Ortega MD - Last Filed: 05/22/22 06:51> Time Seen by Provider: 05/21/22 22:30 <Rob Ortega MD - Last Filed: 05/22/22 06:51> Source: family and EMS <Rob Ortega MD - Last Filed: 05/22/22 06:51> Mode of arrival: EMS <Rob Ortega MD - Last Filed: 05/22/22 06:51> Limitations: clinical condition <Rob Ortega MD - Last Filed: 05/22/22 06:51> History of Present Illness HPI Narrative: 67-year-old with a history of glioblastoma status post craniotomy and tumor resection. July 2021 and April 2022 was brought in from home by EMS with progressive right-sided weakness. As per the family patient was doing fine however his right arm seem to be more weaker and his speech is more slurred this evening. Patient has some expressive aphasia which is baseline for him now since the time of surgery. Patient denied any headache or chest pain. He is presently under the care of neurosurgery and oncology team at [facility]. reports that he finished his last dose of dexamethasone 4 mg tablet yesterday. <Rob Ortega MD - Last Filed: 05/22/22 06:51> Onset (ago): hour(s) (1) <Rob Ortega MD - Last Filed: 05/22/22 06:51> Timing confirmed by: spouse <Rob Ortega MD - Last Filed: 05/22/22 06:51> Location: speech, right arm and right leg <Rob Ortega MD - Last Filed: 05/22/22 06:51> History of same: Yes <Rob Ortega MD - Last Filed: 05/22/22 06:51> Severity: moderate <Rob Ortega MD - Last Filed: 05/22/22 06:51> Quality: weak <Rob Ortega MD - Last Filed: 05/22/22 06:51> Relieving factors: none <Rob Ortega MD - Last Filed: 05/22/22 06:51> Exacerbating factors: none <Rob Ortega MD - Last Filed: 05/22/22 06:51> Context: gradual onset <Rob Ortega MD - Last Filed: 05/22/22 06:51> Associated symptoms: denies other symptoms <Rob Ortega MD - Last Filed: 05/22/22 06:51> Treatments Prior to Arrival: none <Rob Ortega MD - Last Filed: 05/22/22 06:51> Related Data Allergies/Adverse Reactions: Allergies Allergy/AdvReac Type Severity Reaction Status Date / Time hydrochlorothiazide Allergy Unknown Verified 04/28/22 13:54 lisinopril Allergy Unknown Verified 04/28/22 13:54 Penicillins Allergy Rash Verified 11/11/21 09:22 <Rob Ortega MD - Last Filed: 05/22/22 06:51> Review of Systems Review of Systems: All systems reviewed & are unremarkable except as noted in HPI and below <Rob Ortega MD - Last Filed: 05/22/22 06:51> Constitutional: Constitutional: Reports no additional constitutional complaints <Rob Ortega MD - Last Filed: 05/22/22 06:51> Eyes: Eyes: Reports no additional eye complaints <Rob Ortega MD - Last Filed: 05/22/22 06:51> ENT: Reports system reviewed and no additional complaints, except as documented <Rob Ortega MD - Last Filed: 05/22/22 06:51> Cardiovascular: Cardiovascular: Reports no additional cardiovascular complaints <MD Sondra Alcocer Last Filed: 05/22/22 06:51> Respiratory: Respiratory: Reports no additional respiratory complaints <Rob Ortega MD - Last Filed: 05/22/22 06:51> Gastrointestinal: Gastrointestinal: Reports no additional gastrointestinal complaints <MD Sondra Alcocer Last Filed: 05/22/22 06:51> Musculoskeletal: Musculoskeletal: Reports no additional musculoskeletal complaints <MD Sondra Alcocer Last Filed: 05/22/22 06:51> Neurologic: Reports as per HPI <Rob Ortega MD - Last Filed: 05/22/22 06:51> [facility] Past Medical History Medical History: Medical History Anemia Colon cancer screening Glioblastoma HTN (hypertension) Hyperlipidemia Obesity <Calos
[2022-05-22] VITALS (22 sets, daily range): BP systolic 135–150; BP diastolic 90–98; PULSE 67–81; RESP 12–23; O2SAT 95–97
[2022-05-22 01:49] LABS: Influenza A QL RT-PCR Negative (Negative); Influenza B QL RT-PCR Negative (Negative); SARS-CoV-2 RNA PCR Negative
--- NOTE | 2022-05-22 07:41 | PC.NURSE ---
CALLED TO LET HER KNOW THAT MR SPENCER WOULD NOT BE ADMITTED PER RECOMMENDATION OF [facility]. SHE CAN COME PICK HIM UP IN THE ED DANIELLE.
--- NOTE | 2022-05-22 09:21 | PC.NURSE ---
SPOKE WITH PT'S AGAIN TO CHECK HER ETA TO THE ED. SHE STATES SHE IS ABOUT 5 MINUTES AWAY FROM THE HOSPITAL.
[2022-06-07 15:40] LABS: Glucose Point of Care 134 mg/dl (65-105)
== END 2022-05-22 09:40 | disposition home or self-care (01) ==
PROVIDERS: Physician Assistant; Emergency Provider Family Medicine
DX: T81.89XA Other complications of procedures, not elsewhere classified, initial encounter (principal); G93.6 Cerebral edema; C71.9 Malignant neoplasm of brain, unspecified; Z20.822 Contact with and (suspected) exposure to COVID-19; I10 Essential (primary) hypertension; E78.5 Hyperlipidemia, unspecified; E66.9 Obesity, unspecified; Z86.2 Personal history of diseases of the blood and blood-forming organs and certain disorders involving the immune mechanism
CPT/HCPCS: 36415; 70450; 71045; 80053; 82948; 84484; 85025; 85610; 85730; 87636; 93005; 96374; 99284; J1100